=== PATIENT | female | born 1965 | race Two or more races ===

== ENCOUNTER 2024-08-20 12:26 | Emergency (ER) | payer MEDICAID, OTHER ==
[~2024-08-20] VITALS: Ht 162.6 cm; Wt 70.1 kg
[2024-08-20 12:53] VITALS: TEMP 97.8
[2024-08-20 13:04] VITALS: BP 129/83; PULSE 104; RESP 16; O2SAT 99
[2024-08-20] MEDS ORDERED: BACDST PO (13:56)
[2024-08-20] MEDS ORDERED: IBUP-1454 PO (13:56)
[2024-08-20] MEDS: ACETAMINOPHEN 500 MG TAB PO ONE (13:58)
[2024-08-20] MEDS: cefTRIAXone SOD 1,000 MG VL IM ONE (13:59)
== END 2024-08-20 14:24 | disposition home or self-care (01) ==
LOC: ER 12:32
DX: L02.32 Furuncle of buttock (principal); Z79.1 Long term (current) use of non-steroidal anti-inflammatories (NSAID); Z79.899 Other long term (current) drug therapy
CPT/HCPCS: 96372; 99283; J0696